=== PATIENT | male | born 1970 | race Caucasian/White ===

== ENCOUNTER 2022-03-03 13:51 | Inpatient (IN) | payer MEDICARE, MEDICAID ==
[~2022-03-03] VITALS: Ht 167.6 cm; Wt 71.7 kg
[2022-03-03 14:36] LABS: BASOPHILS % (AUTO) 0.7 % (0.0-2.0); EOSINOPHILS % (AUTO) 0.9 % (1.0-6.0); HEMOGLOBIN 14.1 g/dL (13.5-17.5); LYMPHOCYTES # (AUTO) 1.6 K/uL (1.0-4.8); LYMPHOCYTES % (AUTO) 19.3 % (22.0-44.0); MEAN CORPUSCULAR HEMOGLOBIN 30.1 pg (26.0-34.0); MEAN CORPUSCULAR HGB CONC 32.8 G/dL (31.0-37.0); MEAN CORPUSCULAR VOLUME 92 fL (80-100); MONOCYTES # (AUTO) 1.1 K/uL (0.1-1.0); NEUTROPHILS # (AUTO) 5.5 K/uL (1.8-7.7); NEUTROPHILS % (AUTO) 66.1 % (40.0-70.0); PLATELET COUNT (AUTO) 416 K/uL (150-450); RED BLOOD CELL COUNT(AUTO) 4.68 MIL/uL (4.50-5.90); RED CELL DISTRIBUTION WIDTH 14.2 % (11.5-14.5)
[2022-03-03 14:47] LABS: ANION GAP 8 mmol/L (8-16); CALCIUM, TOTAL 8.9 mg/dL (8.8-10.5); CARBON DIOXIDE 29 mmol/L (22-29); CHLORIDE 104 mmol/L (98-107); CREATININE 1.04 mg/dL (0.60-1.30); GLOMERULAR FILTR. RATE CALC > 60 mL/min (>60); GLUCOSE,RANDOM 112 mg/dL (70-110); POTASSIUM 4.3 mmol/L (3.5-5.1); SODIUM SERUM 141 mmol/L (136-145); UREA NITROGEN, BLOOD 8 mg/dL (7-18)
[2022-03-03 14:52] LABS: ALANINE AMINOTRANSFERASE 24 U/L (12-78); ALBUMIN 3.9 g/dL (3.4-5.0); ALKALINE PHOSPHATASE 83 U/L (46-116); ASPARTATE AMINOTRANSFERASE 24 U/L (15-37); BILIRUBIN,TOTAL 0.5 mg/dL (0.1-1.0); TOTAL PROTEIN, SERUM 7.4 g/dL (6.4-8.2)
[2022-03-03] MEDS ORDERED: OLANZapine 5 MG RAPDIS TABLET PO ONE (15:15)
[2022-03-03 16:56] LABS: COVID AG,FIA SOURCE NASAL SWAB
[2022-03-03 19:14] LABS: APPEARANCE,URINE CLEAR (CLEAR); BILIRUBIN,URINE NEGATIVE (NEGATIVE); GLUCOSE, URINE (UA) NEGATIVE (NEGATIVE); KETONES,URINE NEGATIVE (NEGATIVE); LEUKOCYTE ESTERASE ,URINE NEGATIVE (NEGATIVE); NITRATE,URINE NEGATIVE (NEGATIVE); OCCULT BLOOD,URINE NEGATIVE (NEGATIVE); PH,URINE 7.5 (5.0-8.0); PROTEIN,URINE NEGATIVE (NEGATIVE); SPECIFIC GRAVITIY, URINE 1.005 (1.003-1.030); UROBILINOGEN,URINE <=1.0 mg/dL (<=1.0)
[2022-03-03 19:20] LABS: AMPHET/METH SCREEN,URINE NEGATIVE (NEGATIVE); BARBITURATE SCREEN, URINE NEGATIVE (NEGATIVE); BENZODIAZEPINES SCREEN,URINE NEGATIVE (NEGATIVE); CANNABINOID SCREEN,URINE NEGATIVE (NEGATIVE); COCAINE SCREEN,URINE NEGATIVE (NEGATIVE); METHADONE SCREEN, URINE NEGATIVE (NEGATIVE); OPIATE SCREEN,URINE NEGATIVE (NEGATIVE)
[2022-03-03 19:23] LABS: PHENCYCLIDINE SCREEN,URINE NEGATIVE (NEGATIVE)
[2022-03-03] MEDS: ZOLPIDEM TARTRATE 10 MG TABLET PO PRN (23:13)
[2022-03-03 23:21] VITALS: BP 126/78
[2022-03-04 00:10] VITALS: BP 111/80
[2022-03-04] MEDS ORDERED: PETROLATUM,WHITE 28 GM JELLY TP PRN (06:15)
[2022-03-04] MEDS ORDERED: CloNIDine HCL 0.1 MG TABLET PO PRN (06:15)
[2022-03-04] MEDS ORDERED: IBUPROFEN 400 MG TABLET PO PRN (06:15)
[2022-03-04] MEDS ORDERED: MAG HYDROX/AL HYDROX/SIMETH ES 30 ML SUSPENSION UDCUP PO PRN (06:15)
[2022-03-04] MEDS ORDERED: ONDANSETRON HCL 4 MG TABLET PO PRN (06:15)
[2022-03-04] MEDS ORDERED: DOCUSATE SODIUM 100 MG CAPSULE PO PRN (06:15)
[2022-03-04] MEDS ORDERED: LOPERAMIDE HCL 2 MG CAPSULE PO PRN (06:15)
[2022-03-04] MEDS ORDERED: ALBUTEROL SULFATE HFA 90 MCG/PUFF 8 GM INHALER IH PRN (06:15)
[2022-03-04] MEDS ORDERED: MAGNESIUM HYDROXIDE SUSPENSION 30 ML UDCUP PO PRN (06:15)
[2022-03-04] MEDS ORDERED: GuaiFENesin/D-METHORPHAN [SUGAR-FREE] 200-20MG/10 ML SYRUP UDCUP PO PRN (06:15)
[2022-03-04] MEDS ORDERED: NICOTINE 14 MG/24 HOUR PATCH TD PRN (06:15)
[2022-03-04 07:30] LABS: HEMOGLOBIN A1C 5.7 % (3.8-5.6)
[2022-03-04 07:54] LABS: CHOL/HDL RATIO 2.4 (4.2-7.3); FREE T4 (FREE THYROXINE) 0.92 ng/dL (0.76-1.46); THYROID STIMULATING HORMONE 0.88 uIU/mL (0.36-3.74)
[2022-03-04 08:39] VITALS: BP 100/60
[2022-03-04 16:16] VITALS: BP 128/64
[2022-03-04] MEDS: DIVALPROEX SODIUM 500 MG DR TABLET PO SCH (20:07)
[2022-03-04] MEDS: ACETAMINOPHEN 325 MG TABLET PO PRN (20:08)
[2022-03-05 05:23] VITALS: BP 106/61
[2022-03-05 07:28] LABS: BASOPHILS % (AUTO) 0.3 % (0.0-2.0); EOSINOPHILS % (AUTO) 0.4 % (1.0-6.0); MEAN CORPUSCULAR HEMOGLOBIN 30.8 pg (26.0-34.0); MEAN CORPUSCULAR HGB CONC 34.1 G/dL (31.0-37.0); MEAN CORPUSCULAR VOLUME 90 fL (80-100); MONOCYTES # (AUTO) 1.1 K/uL (0.1-1.0); MONOCYTES % (AUTO) 14.9 % (2.0-9.0); NEUTROPHILS # (AUTO) 5.2 K/uL (1.8-7.7); NEUTROPHILS % (AUTO) 71.4 % (40.0-70.0); PLATELET COUNT (AUTO) 292 K/uL (150-450); RED BLOOD CELL COUNT(AUTO) 4.53 MIL/uL (4.50-5.90); RED CELL DISTRIBUTION WIDTH 14.4 % (11.5-14.5)
[2022-03-05] MEDS: DIVALPROEX SODIUM 500 MG DR TABLET PO SCH ×2 (08:24→20:45)
[2022-03-05 08:31] VITALS: BP 133/65
[2022-03-05 16:31] VITALS: BP 115/64
[2022-03-05] MEDS: MetroNIDAZOLE 500 MG TABLET PO SCH (16:51)
[2022-03-06 06:18] VITALS: BP 118/62
[2022-03-06 08:15] VITALS: BP 103/63
[2022-03-06] MEDS: MetroNIDAZOLE 500 MG TABLET PO SCH ×3 (09:32→16:01)
[2022-03-06] MEDS: DIVALPROEX SODIUM 500 MG DR TABLET PO SCH ×2 (09:32→20:14)
[2022-03-06 16:18] VITALS: BP 106/71
[2022-03-07 01:00] VITALS: BP 104/66
[2022-03-07 08:32] VITALS: BP 106/60
[2022-03-07] MEDS: MetroNIDAZOLE 500 MG TABLET PO SCH ×4 (08:45→17:27)
[2022-03-07] MEDS: DIVALPROEX SODIUM 500 MG DR TABLET PO SCH ×2 (08:45→21:19)
[2022-03-07] MEDS: LORazepam 2 MG TABLET PO PRN (08:52)
[2022-03-07] MEDS: ARIPiprazole 5 MG TABLET PO SCH (08:53)
[2022-03-07 16:29] VITALS: BP 102/67
[2022-03-08 01:01] VITALS: BP 122/83
[2022-03-08] MEDS: LORazepam 2 MG TABLET PO PRN (04:05)
[2022-03-08] MEDS: ZOLPIDEM TARTRATE 10 MG TABLET PO PRN (04:05)
[2022-03-08] MEDS: MetroNIDAZOLE 500 MG TABLET PO SCH ×3 (08:12→17:00)
[2022-03-08] MEDS: DIVALPROEX SODIUM 500 MG DR TABLET PO SCH ×2 (08:12→20:45)
[2022-03-08] MEDS: ARIPiprazole 5 MG TABLET PO SCH (08:12)
[2022-03-08 08:30] LABS: GLUCOMETER DEV NAME(LOC) POC.BV
[2022-03-08 08:41] LABS: APPEARANCE,URINE TURBID (CLEAR); BILIRUBIN,URINE NEGATIVE (NEGATIVE); GLUCOSE, URINE (UA) NEGATIVE (NEGATIVE); KETONES,URINE NEGATIVE (NEGATIVE); LEUKOCYTE ESTERASE ,URINE TRACE (NEGATIVE); NITRATE,URINE NEGATIVE (NEGATIVE); OCCULT BLOOD,URINE NEGATIVE (NEGATIVE); PROTEIN,URINE TRACE mg/dL (NEGATIVE); UROBILINOGEN,URINE <=1.0 mg/dL (<=1.0)
[2022-03-08 09:01] LABS: BACTERIA,URINE None Seen /HPF (None Seen); RBC,URINE None Seen /HPF (0-2); WBC,URINE 0-2 /HPF (0-5)
[2022-03-08 09:02] LABS: AMORPHOUS SEDIMENT,UR Many /LPF (None Seen); CALCIUM OXALATE CRYSTALS,UR Few /LPF (None Seen)
[2022-03-08 16:21] VITALS: BP 122/70
[2022-03-09 06:19] VITALS: BP 117/75
[2022-03-09 08:11] VITALS: BP 118/71
[2022-03-09] MEDS: DIVALPROEX SODIUM 500 MG DR TABLET PO SCH ×2 (08:37→21:30)
[2022-03-09] MEDS: MetroNIDAZOLE 500 MG TABLET PO SCH ×4 (08:38→17:05)
[2022-03-09] MEDS: ARIPiprazole 5 MG TABLET PO SCH (08:38)
[2022-03-09 16:27] VITALS: BP 141/85
[2022-03-10 07:18] VITALS: BP 126/82
[2022-03-10] MEDS: DIVALPROEX SODIUM 500 MG DR TABLET PO SCH ×2 (08:33→20:14)
[2022-03-10 08:50] VITALS: BP 108/68
[2022-03-10] MEDS: MetroNIDAZOLE 500 MG TABLET PO SCH ×2 (09:00→13:00)
[2022-03-10] MEDS: ARIPiprazole 5 MG TABLET PO SCH (09:00)
[2022-03-10 16:21] VITALS: BP 104/65
[2022-03-11 00:24] VITALS: BP 105/63
[2022-03-11] MEDS: ARIPiprazole 5 MG TABLET PO SCH ×2 (08:19→08:23)
[2022-03-11] MEDS: DIVALPROEX SODIUM 500 MG DR TABLET PO SCH ×2 (08:19→20:25)
[2022-03-11 16:20] VITALS: BP 129/66
[2022-03-12 01:47] VITALS: BP 120/68
[2022-03-12] MEDS: ARIPiprazole 5 MG TABLET PO SCH (09:00)
[2022-03-12] MEDS: DIVALPROEX SODIUM 500 MG DR TABLET PO SCH ×2 (09:11→20:30)
[2022-03-12 09:23] VITALS: BP 111/65
[2022-03-12 16:23] VITALS: BP 155/60
[2022-03-12 19:46] VITALS: BP 103/67
[2022-03-13 01:20] VITALS: BP 120/80
[2022-03-13] MEDS: ARIPiprazole 5 MG TABLET PO SCH (08:23)
[2022-03-13] MEDS: DIVALPROEX SODIUM 500 MG DR TABLET PO SCH ×2 (08:23→20:09)
[2022-03-13 08:36] VITALS: BP 130/81
[2022-03-13 16:22] VITALS: BP 104/62
[2022-03-14] MEDS: DIVALPROEX SODIUM 500 MG DR TABLET PO SCH ×2 (08:02→20:18)
[2022-03-14 08:13] VITALS: BP 111/61
[2022-03-14] MEDS: LITHIUM CARBONATE 300 MG CAPSULE PO SCH ×2 (09:30→16:37)
[2022-03-15 00:20] VITALS: BP 108/67
[2022-03-15 08:21] VITALS: BP 118/66
[2022-03-15] MEDS: LITHIUM CARBONATE 300 MG CAPSULE PO SCH ×2 (08:25→20:27)
[2022-03-15] MEDS: DIVALPROEX SODIUM 500 MG DR TABLET PO SCH ×2 (08:25→20:27)
[2022-03-15 16:22] VITALS: BP 117/70
[2022-03-16 01:25] VITALS: BP 113/72
[2022-03-16] MEDS: LITHIUM CARBONATE 300 MG CAPSULE PO SCH ×2 (08:33→18:00)
[2022-03-16] MEDS: DIVALPROEX SODIUM 500 MG DR TABLET PO SCH ×2 (08:33→20:35)
[2022-03-16 16:21] VITALS: BP 129/76
[2022-03-16] MEDS: LORazepam 2 MG TABLET PO PRN ×2 (21:02→21:11)
[2022-03-16] MEDS: HALOPERIDOL 5 MG TABLET PO PRN ×2 (21:02→21:11)
[2022-03-17 00:45] VITALS: BP 127/69
[2022-03-17 08:22] LABS: GLUCOMETER DEV NAME(LOC) POC.BV
[2022-03-17 08:58] VITALS: BP 130/70
[2022-03-17] MEDS: LITHIUM CARBONATE 300 MG CAPSULE PO SCH ×3 (09:19→17:00)
[2022-03-17] MEDS: DIVALPROEX SODIUM 500 MG DR TABLET PO SCH ×3 (09:20→17:00)
[2022-03-17 13:37] LABS: GLUCOMETER DEV NAME(LOC) POC.BV
[2022-03-18] MEDS: DIVALPROEX SODIUM 500 MG DR TABLET PO SCH ×2 (08:10→17:03)
[2022-03-18] MEDS: LITHIUM CARBONATE 300 MG CAPSULE PO SCH ×2 (08:10→17:03)
[2022-03-18 16:23] VITALS: BP 138/78
[2022-03-19] MEDS ORDERED: HALOPERIDOL LACTATE 5 MG/ML VIAL IM ONE (05:30)
[2022-03-19] MEDS ORDERED: DiphenhydrAMINE HCL 50 MG/ML VIAL IM ONE (05:30)
[2022-03-19] MEDS ORDERED: LORazepam 2 MG/ML VIAL IM ONE (05:30)
[2022-03-19] MEDS ORDERED: HALOPERIDOL LACTATE 5 MG/ML VIAL ONE (05:36)
[2022-03-19] MEDS ORDERED: LORazepam 2 MG/ML VIAL ONE (05:36)
[2022-03-19] MEDS ORDERED: DiphenhydrAMINE HCL 50 MG/ML VIAL ONE (05:36)
[2022-03-19] MEDS: LITHIUM CARBONATE 300 MG CAPSULE PO SCH ×3 (09:00→21:09)
[2022-03-19] MEDS: DIVALPROEX SODIUM 500 MG DR TABLET PO SCH ×3 (09:00→21:09)
[2022-03-20 08:00] VITALS: BP 125/76
[2022-03-20] MEDS: DIVALPROEX SODIUM 500 MG DR TABLET PO SCH ×2 (08:06→16:59)
[2022-03-20] MEDS: LITHIUM CARBONATE 300 MG CAPSULE PO SCH ×2 (08:06→16:59)
[2022-03-20] MEDS ORDERED: HALOPERIDOL LACTATE 5 MG/ML VIAL IM ONE (08:30)
[2022-03-20] MEDS ORDERED: DiphenhydrAMINE HCL 50 MG/ML VIAL IM ONE (08:30)
[2022-03-20] MEDS ORDERED: LORazepam 2 MG/ML VIAL IM ONE (08:30)
[2022-03-20] MEDS: RisperiDONE 1 MG TABLET PO SCH ×2 (11:04→21:00)
[2022-03-20 16:21] VITALS: BP 118/70
[2022-03-21 02:57] VITALS: BP 114/72
[2022-03-21 08:29] VITALS: BP 120/60
[2022-03-21] MEDS: LITHIUM CARBONATE 300 MG CAPSULE PO SCH ×2 (08:33→16:40)
[2022-03-21] MEDS: DIVALPROEX SODIUM 500 MG DR TABLET PO SCH ×2 (08:33→16:40)
[2022-03-21] MEDS: RisperiDONE 1 MG TABLET PO SCH ×2 (08:33→20:05)
[2022-03-21] MEDS ORDERED: LORazepam 2 MG/ML VIAL IM ONE (09:15)
[2022-03-21] MEDS ORDERED: HALOPERIDOL LACTATE 5 MG/ML VIAL IM ONE (09:15)
[2022-03-21] MEDS ORDERED: DiphenhydrAMINE HCL 50 MG/ML VIAL IM ONE (09:15)
[2022-03-21] MEDS ORDERED: HALOPERIDOL LACTATE 5 MG/ML VIAL ONE (09:18)
[2022-03-21] MEDS ORDERED: LORazepam 2 MG/ML VIAL ONE (09:18)
[2022-03-21] MEDS ORDERED: DiphenhydrAMINE HCL 50 MG/ML VIAL ONE (09:18)
[2022-03-21 16:12] VITALS: BP 100/62
[2022-03-22 01:07] VITALS: BP 111/69
[2022-03-22 08:12] VITALS: BP 103/65
[2022-03-22] MEDS: RisperiDONE 1 MG TABLET PO SCH ×2 (08:29→21:00)
[2022-03-22] MEDS: LITHIUM CARBONATE 300 MG CAPSULE PO SCH ×2 (08:29→17:30)
[2022-03-22] MEDS: DIVALPROEX SODIUM 500 MG DR TABLET PO SCH ×2 (08:29→17:30)
[2022-03-22] MEDS: LORazepam 2 MG TABLET PO PRN (10:02)
[2022-03-22] MEDS: HALOPERIDOL 5 MG TABLET PO PRN (10:02)
[2022-03-22 16:16] VITALS: BP 127/86
[2022-03-23] MEDS: RisperiDONE 1 MG TABLET PO SCH ×2 (08:39→20:43)
[2022-03-23] MEDS: HALOPERIDOL 5 MG TABLET PO PRN (08:39)
[2022-03-23] MEDS: LITHIUM CARBONATE 300 MG CAPSULE PO SCH ×2 (08:40→17:00)
[2022-03-23] MEDS: DIVALPROEX SODIUM 500 MG DR TABLET PO SCH ×2 (08:40→17:00)
[2022-03-23] MEDS: LORazepam 2 MG TABLET PO PRN (08:40)
[2022-03-23] MEDS ORDERED: LORazepam 2 MG/ML VIAL ONE (10:36)
[2022-03-23] MEDS ORDERED: HALOPERIDOL LACTATE 5 MG/ML VIAL ONE (10:36)
[2022-03-23] MEDS ORDERED: DiphenhydrAMINE HCL 50 MG/ML VIAL ONE (10:37)
[2022-03-23] MEDS ORDERED: LORazepam 2 MG/ML VIAL IM ONE (10:45)
[2022-03-23] MEDS ORDERED: DiphenhydrAMINE HCL 50 MG/ML VIAL IM ONE (10:45)
[2022-03-23] MEDS ORDERED: HALOPERIDOL LACTATE 5 MG/ML VIAL IM ONE (10:45)
[2022-03-23 16:14] VITALS: BP 128/76
[2022-03-24 05:39] VITALS: BP 101/62
[2022-03-24] MEDS: LITHIUM CARBONATE 300 MG CAPSULE PO SCH ×2 (08:01→16:59)
[2022-03-24] MEDS: DIVALPROEX SODIUM 500 MG DR TABLET PO SCH ×2 (08:01→16:59)
[2022-03-24 08:43] VITALS: BP 110/67
[2022-03-24] MEDS: RisperiDONE 1 MG TABLET PO SCH ×2 (09:00→21:00)
[2022-03-24 16:28] VITALS: BP 137/90
[2022-03-25 02:46] VITALS: BP 115/71
[2022-03-25 08:25] VITALS: BP 135/81
[2022-03-25] MEDS: RisperiDONE 1 MG TABLET PO SCH ×2 (08:34→08:38)
[2022-03-25] MEDS: LITHIUM CARBONATE 300 MG CAPSULE PO SCH ×2 (08:35→17:23)
[2022-03-25] MEDS: DIVALPROEX SODIUM 500 MG DR TABLET PO SCH ×2 (08:35→17:23)
[2022-03-25] MEDS ORDERED: HALOPERIDOL LACTATE 5 MG/ML VIAL IM PRN (15:00)
[2022-03-25 16:12] VITALS: BP 113/76
[2022-03-25] MEDS: RisperiDONE 2 MG TABLET PO SCH (17:23)
[2022-03-26 01:16] VITALS: BP 147/84
[2022-03-26 08:30] VITALS: BP 111/72
[2022-03-26] MEDS: RisperiDONE 2 MG TABLET PO SCH ×2 (08:32→16:59)
[2022-03-26] MEDS: DIVALPROEX SODIUM 500 MG DR TABLET PO SCH ×2 (08:32→16:58)
[2022-03-26] MEDS: LITHIUM CARBONATE 300 MG CAPSULE PO SCH ×2 (08:32→16:59)
[2022-03-26 16:14] VITALS: BP 127/70
[2022-03-27 04:00] VITALS: BP 126/85
[2022-03-27 08:15] VITALS: BP 108/60
[2022-03-27] MEDS: RisperiDONE 2 MG TABLET PO SCH ×2 (08:18→16:59)
[2022-03-27] MEDS: LITHIUM CARBONATE 300 MG CAPSULE PO SCH ×2 (08:18→16:59)
[2022-03-27] MEDS: DIVALPROEX SODIUM 500 MG DR TABLET PO SCH ×2 (08:18→16:59)
[2022-03-27 16:18] VITALS: BP 134/83
[2022-03-28] MEDS: ACETAMINOPHEN 325 MG TABLET PO PRN ×2 (06:08→06:44)
[2022-03-28 06:11] VITALS: BP 100/61
[2022-03-28 08:14] VITALS: BP 121/70
[2022-03-28] MEDS: LITHIUM CARBONATE 300 MG CAPSULE PO SCH ×2 (08:32→17:27)
[2022-03-28] MEDS: DIVALPROEX SODIUM 500 MG DR TABLET PO SCH ×2 (08:32→17:27)
[2022-03-28] MEDS: RisperiDONE 2 MG TABLET PO SCH ×2 (08:32→17:27)
[2022-03-28 16:15] VITALS: BP 107/62
[2022-03-29] MEDS: ACETAMINOPHEN 325 MG TABLET PO PRN (03:07)
[2022-03-29 05:25] VITALS: BP 115/72
[2022-03-29] MEDS: DIVALPROEX SODIUM 500 MG DR TABLET PO SCH ×2 (08:27→17:54)
[2022-03-29] MEDS: RisperiDONE 2 MG TABLET PO SCH ×2 (08:28→17:54)
[2022-03-29] MEDS: LITHIUM CARBONATE 300 MG CAPSULE PO SCH ×2 (08:28→17:55)
[2022-03-29 08:35] VITALS: BP 106/62
[2022-03-29 16:22] VITALS: BP 120/67
[2022-03-30 04:33] VITALS: BP 99/60
[2022-03-30 08:15] VITALS: BP 105/67
[2022-03-30] MEDS: LITHIUM CARBONATE 300 MG CAPSULE PO SCH ×2 (08:29→18:24)
[2022-03-30] MEDS: RisperiDONE 2 MG TABLET PO SCH ×2 (08:29→18:24)
[2022-03-30] MEDS: DIVALPROEX SODIUM 500 MG DR TABLET PO SCH ×2 (08:29→18:24)
[2022-03-30 16:23] VITALS: BP 115/64
[2022-03-31 03:00] VITALS: BP 117/66
[2022-03-31 08:14] VITALS: BP 126/66
[2022-03-31] MEDS: RisperiDONE 2 MG TABLET PO SCH ×2 (08:41→17:04)
[2022-03-31] MEDS: DIVALPROEX SODIUM 500 MG DR TABLET PO SCH ×2 (08:41→17:04)
[2022-03-31] MEDS: LITHIUM CARBONATE 600 MG CAPSULE PO SCH ×2 (08:57→17:04)
[2022-03-31 16:18] VITALS: BP 112/61
[2022-04-01 02:01] VITALS: BP 109/62
[2022-04-01] MEDS: LITHIUM CARBONATE 600 MG CAPSULE PO SCH ×2 (08:34→17:06)
[2022-04-01] MEDS: DIVALPROEX SODIUM 500 MG DR TABLET PO SCH ×2 (08:34→17:06)
[2022-04-01] MEDS: RisperiDONE 2 MG TABLET PO SCH ×2 (08:35→17:06)
[2022-04-01 08:39] VITALS: BP 104/61
[2022-04-01 16:12] VITALS: BP 134/86
[2022-04-02 01:47] VITALS: BP 123/78
[2022-04-02 08:17] VITALS: BP 126/70
[2022-04-02] MEDS: LITHIUM CARBONATE 600 MG CAPSULE PO SCH ×2 (08:43→17:01)
[2022-04-02] MEDS: RisperiDONE 2 MG TABLET PO SCH ×2 (08:43→17:01)
[2022-04-02] MEDS: DIVALPROEX SODIUM 500 MG DR TABLET PO SCH ×2 (08:43→17:01)
[2022-04-02 16:16] VITALS: BP 102/64
[2022-04-03 00:24] VITALS: BP 114/78
[2022-04-03] MEDS: DIVALPROEX SODIUM 500 MG DR TABLET PO SCH ×2 (08:27→17:13)
[2022-04-03] MEDS: LITHIUM CARBONATE 600 MG CAPSULE PO SCH ×2 (08:27→17:14)
[2022-04-03] MEDS: RisperiDONE 2 MG TABLET PO SCH ×2 (08:28→17:14)
[2022-04-03 08:42] VITALS: BP 97/59
[2022-04-03 16:03] VITALS: BP 102/66
[2022-04-04 00:35] VITALS: BP 110/74
[2022-04-04] MEDS: RisperiDONE 2 MG TABLET PO SCH ×2 (08:14→17:08)
[2022-04-04] MEDS: DIVALPROEX SODIUM 500 MG DR TABLET PO SCH ×2 (08:14→17:08)
[2022-04-04] MEDS: LITHIUM CARBONATE 600 MG CAPSULE PO SCH ×2 (08:14→17:08)
[2022-04-04 08:16] VITALS: BP 107/60
[2022-04-04 16:14] VITALS: BP 108/66
[2022-04-05 04:29] VITALS: BP 105/60
[2022-04-05] MEDS: RisperiDONE 2 MG TABLET PO SCH ×2 (08:18→16:56)
[2022-04-05] MEDS: DIVALPROEX SODIUM 500 MG DR TABLET PO SCH ×2 (08:18→16:56)
[2022-04-05] MEDS: LITHIUM CARBONATE 600 MG CAPSULE PO SCH ×2 (08:18→16:56)
[2022-04-05 08:27] VITALS: BP 108/68
[2022-04-05 16:22] VITALS: BP 104/67
[2022-04-06 02:36] VITALS: BP 115/62
[2022-04-06 08:30] VITALS: BP 112/67
[2022-04-06] MEDS: DIVALPROEX SODIUM 500 MG DR TABLET PO SCH ×2 (08:32→17:32)
[2022-04-06] MEDS: RisperiDONE 2 MG TABLET PO SCH ×2 (08:32→17:32)
[2022-04-06] MEDS: LITHIUM CARBONATE 600 MG CAPSULE PO SCH ×2 (08:32→17:31)
[2022-04-06 16:28] VITALS: BP 107/63
[2022-04-07 00:24] VITALS: BP 113/60
[2022-04-07] MEDS: DIVALPROEX SODIUM 500 MG DR TABLET PO SCH ×2 (08:04→17:32)
[2022-04-07] MEDS: LITHIUM CARBONATE 600 MG CAPSULE PO SCH ×2 (08:04→17:32)
[2022-04-07] MEDS: RisperiDONE 2 MG TABLET PO SCH ×2 (08:04→17:32)
[2022-04-07 08:53] VITALS: BP 110/58
[2022-04-07 16:01] LABS: GLUCOMETER DEV NAME(LOC) POC.BV
[2022-04-07 16:19] VITALS: BP 106/68
[2022-04-07 16:21] LABS: GLUCOMETER DEV NAME(LOC) POC.BV
[2022-04-08 00:55] VITALS: BP 106/61
[2022-04-08] MEDS: LITHIUM CARBONATE 600 MG CAPSULE PO SCH ×2 (08:06→17:09)
[2022-04-08] MEDS: RisperiDONE 2 MG TABLET PO SCH ×2 (08:06→17:09)
[2022-04-08] MEDS: DIVALPROEX SODIUM 500 MG DR TABLET PO SCH ×2 (08:06→17:09)
[2022-04-08 08:21] VITALS: BP 118/64
[2022-04-08 16:14] VITALS: BP 106/60
[2022-04-09 04:50] VITALS: BP 105/65
[2022-04-09] MEDS: RisperiDONE 2 MG TABLET PO SCH ×2 (08:25→17:44)
[2022-04-09] MEDS: DIVALPROEX SODIUM 500 MG DR TABLET PO SCH ×2 (08:25→17:44)
[2022-04-09] MEDS: LITHIUM CARBONATE 600 MG CAPSULE PO SCH ×2 (08:25→17:44)
[2022-04-09 08:47] VITALS: BP 94/64
[2022-04-09 16:19] VITALS: BP 104/60
[2022-04-10 04:13] VITALS: BP 110/68
[2022-04-10 08:40] VITALS: BP 100/58
[2022-04-10] MEDS: RisperiDONE 2 MG TABLET PO SCH ×2 (08:56→16:46)
[2022-04-10] MEDS: LITHIUM CARBONATE 600 MG CAPSULE PO SCH ×2 (08:56→16:46)
[2022-04-10] MEDS: DIVALPROEX SODIUM 500 MG DR TABLET PO SCH ×2 (08:57→16:46)
[2022-04-10 16:20] VITALS: BP 105/62
[2022-04-11 05:50] VITALS: BP 102/61
[2022-04-11] MEDS: LITHIUM CARBONATE 600 MG CAPSULE PO SCH ×2 (08:22→17:10)
[2022-04-11] MEDS: RisperiDONE 2 MG TABLET PO SCH ×2 (08:22→17:10)
[2022-04-11] MEDS: DIVALPROEX SODIUM 500 MG DR TABLET PO SCH ×2 (08:22→17:10)
[2022-04-11 08:37] VITALS: BP 106/60
[2022-04-11 16:25] VITALS: BP 106/67
[2022-04-12 04:31] VITALS: BP 95/59
[2022-04-12] MEDS: DIVALPROEX SODIUM 500 MG DR TABLET PO SCH ×2 (08:16→17:13)
[2022-04-12] MEDS: RisperiDONE 2 MG TABLET PO SCH ×2 (08:16→17:13)
[2022-04-12] MEDS: LITHIUM CARBONATE 600 MG CAPSULE PO SCH ×2 (08:16→17:13)
[2022-04-12 08:38] VITALS: BP 104/59
[2022-04-12 16:23] VITALS: BP 105/66
[2022-04-13 05:01] VITALS: BP 105/55
[2022-04-13] MEDS: DIVALPROEX SODIUM 500 MG DR TABLET PO SCH ×2 (08:00→17:19)
[2022-04-13] MEDS: LITHIUM CARBONATE 600 MG CAPSULE PO SCH ×2 (08:00→17:19)
[2022-04-13] MEDS: RisperiDONE 2 MG TABLET PO SCH ×2 (08:00→17:20)
[2022-04-13 08:27] VITALS: BP 100/63
[2022-04-13] MEDS: BENZTROPINE MESYLATE 1 MG TABLET PO SCH ×2 (10:23→17:00)
[2022-04-13 11:33] LABS: GLUCOMETER DEV NAME(LOC) POC.BV
[2022-04-13 16:25] VITALS: BP 107/64
[2022-04-14 04:16] VITALS: BP 101/58
[2022-04-14 08:31] VITALS: BP 103/68
[2022-04-14] MEDS: DIVALPROEX SODIUM 500 MG DR TABLET PO SCH ×2 (08:33→17:23)
[2022-04-14] MEDS: LITHIUM CARBONATE 600 MG CAPSULE PO SCH ×2 (08:33→17:23)
[2022-04-14] MEDS: RisperiDONE 2 MG TABLET PO SCH ×2 (08:33→17:23)
[2022-04-14] MEDS: BENZTROPINE MESYLATE 1 MG TABLET PO SCH ×2 (08:38→17:00)
[2022-04-14] MEDS: ACETAMINOPHEN 325 MG TABLET PO PRN ×2 (14:57→23:58)
[2022-04-14 16:18] VITALS: BP 116/62
[2022-04-15 06:12] LABS: GLUCOMETER DEV NAME(LOC) POC.BV
[2022-04-15 08:24] VITALS: BP 106/66
[2022-04-15] MEDS: DIVALPROEX SODIUM 500 MG DR TABLET PO SCH ×2 (08:25→17:16)
[2022-04-15] MEDS: RisperiDONE 2 MG TABLET PO SCH ×2 (08:25→17:16)
[2022-04-15] MEDS: LITHIUM CARBONATE 600 MG CAPSULE PO SCH ×2 (08:25→17:16)
[2022-04-15] MEDS: BENZTROPINE MESYLATE 1 MG TABLET PO SCH ×2 (08:27→17:00)
[2022-04-15] MEDS: ACETAMINOPHEN 325 MG TABLET PO PRN (08:27)
[2022-04-15 11:23] LABS: APPEARANCE,URINE CLEAR (CLEAR); BILIRUBIN,URINE NEGATIVE (NEGATIVE); GLUCOSE, URINE (UA) NEGATIVE (NEGATIVE); KETONES,URINE NEGATIVE (NEGATIVE); LEUKOCYTE ESTERASE ,URINE NEGATIVE (NEGATIVE); NITRATE,URINE NEGATIVE (NEGATIVE); OCCULT BLOOD,URINE NEGATIVE (NEGATIVE); PROTEIN,URINE TRACE mg/dL (NEGATIVE); SPECIFIC GRAVITIY, URINE 1.016 (1.003-1.030); UROBILINOGEN,URINE <=1.0 mg/dL (<=1.0)
[2022-04-15 11:48] LABS: BACTERIA,URINE None Seen /HPF (None Seen); RBC,URINE None Seen /HPF (0-2); SQUAMOUS EPITHELIAL CELL,UR None Seen /LPF (None Seen); WBC,URINE None Seen /HPF (0-5)
[2022-04-15 16:23] VITALS: BP 105/62
[2022-04-16 00:23] VITALS: BP 98/62
[2022-04-16 07:21] LABS: BASOPHILS % (AUTO) 0.3 % (0.0-2.0); EOSINOPHILS % (AUTO) 0.6 % (1.0-6.0); HEMATOCRIT 38.5 % (41-53); HEMOGLOBIN 12.8 g/dL (13.5-17.5); LYMPHOCYTES # (AUTO) 1.5 K/uL (1.0-4.8); LYMPHOCYTES % (AUTO) 13.7 % (22.0-44.0); MEAN CORPUSCULAR HEMOGLOBIN 30.7 pg (26.0-34.0); MEAN CORPUSCULAR HGB CONC 33.3 G/dL (31.0-37.0); MEAN CORPUSCULAR VOLUME 92 fL (80-100); MONOCYTES # (AUTO) 1.7 K/uL (0.1-1.0); MONOCYTES % (AUTO) 15.6 % (2.0-9.0); NEUTROPHILS # (AUTO) 7.6 K/uL (1.8-7.7); NEUTROPHILS % (AUTO) 69.8 % (40.0-70.0); PLATELET COUNT (AUTO) 215 K/uL (150-450); RED BLOOD CELL COUNT(AUTO) 4.18 MIL/uL (4.50-5.90); RED CELL DISTRIBUTION WIDTH 15.7 % (11.5-14.5)
[2022-04-16] MEDS: LITHIUM CARBONATE 600 MG CAPSULE PO SCH ×2 (08:39→17:07)
[2022-04-16] MEDS: DIVALPROEX SODIUM 500 MG DR TABLET PO SCH ×2 (08:39→17:07)
[2022-04-16] MEDS: RisperiDONE 2 MG TABLET PO SCH ×2 (08:39→17:07)
[2022-04-16 08:49] VITALS: BP 101/56
[2022-04-16] MEDS: BENZTROPINE MESYLATE 1 MG TABLET PO SCH ×2 (09:00→17:00)
[2022-04-16 16:25] VITALS: BP 107/68
[2022-04-17 02:19] VITALS: BP 106/60
[2022-04-17] MEDS: LITHIUM CARBONATE 600 MG CAPSULE PO SCH ×2 (08:16→16:54)
[2022-04-17] MEDS: RisperiDONE 2 MG TABLET PO SCH ×2 (08:16→16:54)
[2022-04-17] MEDS: DIVALPROEX SODIUM 500 MG DR TABLET PO SCH ×2 (08:16→16:54)
[2022-04-17 08:38] VITALS: BP 105/60
[2022-04-17] MEDS: BENZTROPINE MESYLATE 1 MG TABLET PO SCH ×2 (09:00→17:00)
[2022-04-17 16:08] VITALS: BP 107/61
[2022-04-18 02:19] VITALS: BP 108/66
[2022-04-18] MEDS: DIVALPROEX SODIUM 500 MG DR TABLET PO SCH ×2 (08:24→16:30)
[2022-04-18] MEDS: BENZTROPINE MESYLATE 1 MG TABLET PO SCH ×2 (08:24→16:29)
[2022-04-18] MEDS: LITHIUM CARBONATE 600 MG CAPSULE PO SCH ×2 (08:25→16:29)
[2022-04-18] MEDS: RisperiDONE 2 MG TABLET PO SCH ×2 (08:26→16:29)
[2022-04-18 08:39] VITALS: BP 100/62
[2022-04-18 16:14] VITALS: BP 122/86
[2022-04-19 00:07] VITALS: BP 116/64
[2022-04-19] MEDS: DIVALPROEX SODIUM 500 MG DR TABLET PO SCH (08:11)
[2022-04-19] MEDS: RisperiDONE 2 MG TABLET PO SCH (08:11)
[2022-04-19] MEDS: LITHIUM CARBONATE 600 MG CAPSULE PO SCH (08:11)
[2022-04-19 08:15] VITALS: BP 112/67
[2022-04-19] MEDS: BENZTROPINE MESYLATE 1 MG TABLET PO SCH (09:00)
[2022-04-19] MEDS ORDERED: BENZ1TAB96 PO ×2 (14:56→17:28)
[2022-04-19] MEDS ORDERED: DIVA-112 PO ×2 (14:57→17:28)
[2022-04-19] MEDS ORDERED: RISP2TAB76 PO ×2 (15:00→17:28)
[2022-04-19] MEDS ORDERED: LITH300C3 PO ×2 (15:02→17:28)
== END 2022-04-19 16:11 | disposition home or self-care (01) | DRG 885 ==
LOC: EMS 13:55 → B2S 17:32 → B3A 03-20 12:46
PROVIDERS: ADMIT Psychiatry & Neurology Psychiatry; ATTEND Psychiatry & Neurology Psychiatry
DX: F25.0 Schizoaffective disorder, bipolar type (principal); F41.9 Anxiety disorder, unspecified; G47.00 Insomnia, unspecified; Z20.822 Contact with and (suspected) exposure to COVID-19; Z59.00 Homelessness unspecified; Z79.899 Other long term (current) drug therapy
CPT/HCPCS: 71046; 80053; 80061; 80164; 80178; 81001; 81003; 83036; 84439; 84443; 85025; 99285; G0480; J1200; J1630; J2060; 36415-L1; 36415-TC

== ENCOUNTER 2022-03-04 23:02 | Emergency (ER) | payer MEDICARE, MEDICAID ==
[~2022-03-04] VITALS: Ht 170.2 cm; Wt 70.5 kg
[2022-03-05 00:35] LABS: BASOPHILS % (AUTO) 0.3 % (0.0-2.0); EOSINOPHILS % (AUTO) 0.1 % (1.0-6.0); HEMATOCRIT 42.2 % (41-53); HEMOGLOBIN 14.3 g/dL (13.5-17.5); LYMPHOCYTES # (AUTO) 0.9 K/uL (1.0-4.8); LYMPHOCYTES % (AUTO) 12.8 % (22.0-44.0); MEAN CORPUSCULAR HEMOGLOBIN 30.7 pg (26.0-34.0); MEAN CORPUSCULAR HGB CONC 33.8 G/dL (31.0-37.0); MEAN CORPUSCULAR VOLUME 91 fL (80-100); MONOCYTES # (AUTO) 0.6 K/uL (0.1-1.0); MONOCYTES % (AUTO) 8.1 % (2.0-9.0); NEUTROPHILS # (AUTO) 5.6 K/uL (1.8-7.7); NEUTROPHILS % (AUTO) 78.7 % (40.0-70.0); PLATELET COUNT (AUTO) 306 K/uL (150-450); RED BLOOD CELL COUNT(AUTO) 4.65 MIL/uL (4.50-5.90); RED CELL DISTRIBUTION WIDTH 14.3 % (11.5-14.5)
[2022-03-05 00:41] LABS: COVID AG,FIA SOURCE NASAL SWAB
[2022-03-05 01:06] LABS: APPEARANCE,URINE CLEAR (CLEAR); BILIRUBIN,URINE NEGATIVE (NEGATIVE); GLUCOSE, URINE (UA) NEGATIVE (NEGATIVE); KETONES,URINE NEGATIVE (NEGATIVE); LEUKOCYTE ESTERASE ,URINE NEGATIVE (NEGATIVE); NITRATE,URINE NEGATIVE (NEGATIVE); OCCULT BLOOD,URINE NEGATIVE (NEGATIVE); PROTEIN,URINE NEGATIVE (NEGATIVE); SPECIFIC GRAVITIY, URINE 1.003 (1.003-1.030); UROBILINOGEN,URINE <=1.0 mg/dL (<=1.0)
[2022-03-05 01:08] LABS: INFLUENZA TYPE A NEGATIVE FOR TYPE A (NEGATIVE); INFLUENZA TYPE B NEGATIVE FOR TYPE B (NEGATIVE)
[2022-03-05 01:12] LABS: LACTIC ACID 1.1 mmol/L (0.4-2.0)
[2022-03-05 01:18] LABS: ANION GAP 8 mmol/L (8-16); CALCIUM, TOTAL 8.4 mg/dL (8.8-10.5); CARBON DIOXIDE 30 mmol/L (22-29); CHLORIDE 100 mmol/L (98-107); CREATININE 1.13 mg/dL (0.60-1.30); GLOMERULAR FILTR. RATE CALC > 60 mL/min (>60); GLUCOSE,RANDOM 110 mg/dL (70-110); POTASSIUM 4.3 mmol/L (3.5-5.1); SODIUM SERUM 138 mmol/L (136-145); UREA NITROGEN, BLOOD 11 mg/dL (7-18)
[2022-03-05 01:24] LABS: ALANINE AMINOTRANSFERASE 19 U/L (12-78); ALKALINE PHOSPHATASE 63 U/L (46-116); ASPARTATE AMINOTRANSFERASE 18 U/L (15-37); BILIRUBIN,TOTAL 1.3 mg/dL (0.1-1.0); TOTAL PROTEIN, SERUM 6.2 g/dL (6.4-8.2)
[2022-03-05 02:07] LABS: AMPHET/METH SCREEN,URINE NEGATIVE (NEGATIVE); BARBITURATE SCREEN, URINE NEGATIVE (NEGATIVE); BENZODIAZEPINES SCREEN,URINE NEGATIVE (NEGATIVE); CANNABINOID SCREEN,URINE NEGATIVE (NEGATIVE); COCAINE SCREEN,URINE NEGATIVE (NEGATIVE); METHADONE SCREEN, URINE NEGATIVE (NEGATIVE); OPIATE SCREEN,URINE NEGATIVE (NEGATIVE)
[2022-03-05 02:10] LABS: PHENCYCLIDINE SCREEN,URINE NEGATIVE (NEGATIVE)
[2022-03-05 03:30] VITALS: BP 110/79
== END 2022-03-05 04:00 | disposition home or self-care (01) ==
LOC: EMS 23:02
DX: R11.2 Nausea with vomiting, unspecified (principal); R19.7 Diarrhea, unspecified; R45.851 Suicidal ideations; Z20.822 Contact with and (suspected) exposure to COVID-19
CPT/HCPCS: 36415; 71045; 80053; 80307; 81003; 83605; 85025; 87426; 87804; 99285; G0480